=== PATIENT | female | born 1995 | race Asian ===

== ENCOUNTER 2017-08-20 00:26 | Emergency (ER) | payer SELFPAY ==
[2017-08-20 01:08] VITALS: BP 144/78
[2017-08-20 01:54] LABS: Bacteria,Urine 1+ /HPF (Negative); Bilirubin,Urine NEG (Negative); Blood,Urine LG (Negative); Color,Urine Yellow (Yellow); Mucus,Urine 3+ /HPF; Urobilinogen,Urine < 2.0 mg/dL (<2.0)
[2017-08-20 01:55] LABS: HCG Qualitative,Urine Negative (Negative)
[2017-08-20] MEDS ORDERED: NORCO 5/325 ONE (03:10)
[2017-08-20] MEDS ORDERED: NORCO 5/325 PO ONE (03:12)
[2017-08-20] MEDS ORDERED: FLEXERIL PO ONE (05:05)
[2017-08-20] MEDS ORDERED: MOTRIN PO ONE (05:05)
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
== END 2017-08-20 05:15 | disposition home or self-care (01) ==
LOC: ED 00:26
DX: S29.012A Strain of muscle and tendon of back wall of thorax, initial encounter (principal); W50.0XXA Accidental hit or strike by another person, initial encounter; Y93.89 Activity, other specified; Y92.89 Other specified places as the place of occurrence of the external cause; Y99.0 Civilian activity done for income or pay
CPT/HCPCS: 81001; 81025; 99283

== ENCOUNTER 2018-07-27 13:54 | Emergency (ER) | payer OTHER ==
[2018-07-27 14:00] VITALS: BP 123/75
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
--- NOTE | 2018-07-27 14:58 | XRay Report ---
AP AND LATERAL LUMBOSACRAL SPINE: History: Pain. There appears to be mild dextro curvature to the thoracolumbar junction. The vertebral bodies are well mineralized and normal in alignment and vertebral height with well preserved interspace distances. The visualized portions of the posterior elements are normal. IMPRESSION: Mild thoracolumbar scoliosis. Otherwise, unremarkable lumbar spine films.
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
[2018-07-27] MEDS ORDERED: IBUPROFEN PO ONE (16:21)
== END 2018-07-27 16:29 | disposition home or self-care (01) ==
LOC: ED 13:54
DX: M54.5 Low back pain (principal); V89.0XXA Person injured in unspecified motor-vehicle accident, nontraffic, initial encounter; Y93.89 Activity, other specified; Y92.488 Other paved roadways as the place of occurrence of the external cause; Y99.8 Other external cause status
CPT/HCPCS: 72100; 99283